=== PATIENT | male | born 1950 | race Asian ===

== ENCOUNTER 2016-11-11 04:10 | Emergency (ER) | payer OTHER ==
[~2016-11-11] VITALS: Ht 175.3 cm; Wt 93.0 kg
[2016-11-11 04:18] VITALS: BP_SYST 125
[2016-11-11] MEDS ORDERED: BACITRACIN 1 GM OINT TP ONE (05:00)
[2016-11-11] MEDS ORDERED: LIDOCAINE 1% 10 MG/ML, 20 ML MDV IJ ONE (05:00)
[2016-11-11 08:05] VITALS: BP_SYST 144
== END 2016-11-11 08:05 | disposition home or self-care (01) ==
LOC: SED 04:10
DX: S01.112A Laceration without foreign body of left eyelid and periocular area, initial encounter (principal); E11.9 Type 2 diabetes mellitus without complications; I10 Essential (primary) hypertension; Z95.2 Presence of prosthetic heart valve; Z88.6 Allergy status to analgesic agent; Z88.8 Allergy status to other drugs, medicaments and biological substances; W01.190A Fall on same level from slipping, tripping and stumbling with subsequent striking against furniture, initial encounter; Y93.01 Activity, walking, marching and hiking; Y92.89 Other specified places as the place of occurrence of the external cause; Y99.8 Other external cause status
CPT/HCPCS: 12013; 70486; 99284; J2001